=== PATIENT | male | born 1955 | race African-American/Black ===

== ENCOUNTER → 2016-06-05 | Day surgery (SDC) | payer BC ==
[~2016-06-05] MED LIST: ASPIRIN EC81 M1 PO; ASPIRIN PO; ASPIRIN81 M1 PO; ATACAND HCT 32-1 TAB PO; ATACAND PO; CELEBREX PO; CELEBREX100 MG PO; CHLORTHALIDONE25 M1 PO; CIALIS10 MG PO; CLONIDINE HCL0.1 MG PO; DULCOLAX10 MG/SUPP RC; FLEXERIL PO; FLEXERIL10 M1 PO; HYDROCODONE PO; KROGER PHARMACY; LISINOPRIL PO; LOPRESSOR PO; METOPROLOL SUCC25 MG PO; NAPROSYN500 MG PO; NAPROXEN500 M1 PO; NORVASC PO; NORVASC10 MG PO; PERCOCET5/325 PO; RESTASIS32 EA OU; TYLOX 5/500 CAP1 CAP PO; VALIUM10 MG PO; WALGREEN PHARMACY; ZYRTEC PO
--- NOTE | ~2016-06-05 | OR ---
Unit #: [id number] #: [id number] Patient: MOISES LEIGH [id number] [address] [place], [place] [address] [id number] O MR#: [id number] NAME: MOISES LEIGH. ROOM: Date of Procedure: 06/05/2016 Admission Date: 06/05/2016 Surgeon: Keagan Fritz M.D. : 1955 Attending Physician: Keagan Fritz M.D. Primary Care Physician: Elvis Rios M.D. OPERATIVE REPORT PREOPERATIVE DIAGNOSES Back pain, radiculopathy, herniated nucleus pulposus, spinal stenosis, degenerative disk disease. POSTOPERATIVE DIAGNOSES Back pain, radiculopathy, herniated nucleus pulposus, spinal stenosis, degenerative disk disease. PROCEDURES PERFORMED Lumbar epidural steroid injection with intravenous sedation and fluoroscopic guidance for needle localization. INDICATIONS FOR PROCEDURE This is a 60-year-old male presented with a 5-month history of worsening pain, right greater than left lower extremity pain, which is greater than his low back pain. Workup demonstrated multilevel abnormalities, most significant right-sided disk herniation at L1-2, left-sided L2-3 with marked left greater than right neuroforaminal stenosis, moderate stenosis at L3-4 and L4-5. The patient failed to settle with conservative treatment. The patient was sent for a trial of epidural steroids. Two were done over the last several weeks. They have given additive significant improvement in all components of his pain. He still does have leg numbness and that has somewhat improved also. Based on his good response, we are going to proceed with a final injection at this point. The patient will follow up at the [facility] as needed. If he does get good prolonged improvement with this, he is certainly a good candidate for repeat injections down the line if the pain does indeed flare, which would not be surprising based on the pathology on his back. DESCRIPTION OF PROCEDURE The patient was placed in a seated position. Standard monitors were applied. 2 mg of Versed were given for sedation and anxiolysis, which were adequate. Vital signs remained stable. Sterile prep and drape then of the lumbar area was performed. Skin at the L4 level was localized with 1% lidocaine. An 18-gauge [employer] needle was then advanced via loss of resistance technique and fluoroscopic guidance in toward the epidural space. The patient did not complain of any pain or paresthesia during needle advancement. After confirming proper positioning with fluoroscopy and radiographic contrast, 80 mg of Depo-Medrol and 4 mL of 0.125% bupivacaine were deposited. The patient tolerated the procedure otherwise well and was discharged to the recovery room in stable condition. Unit #: [id number] #: [id number] Patient: MOISES LEIGH Dictated by... Matthew Stubbs/sweta TD: 06/06/2016 01:02 JOB #: [id number] CC: Ifeanyi Westfall M.D. OPERATIVE REPORT X Keagan Fritz MD X PROCEDURE OPERATIVE NOTE
== END | disposition home or self-care (01) ==
LOC: CCSC 07:16
DX: M51.16 Intervertebral disc disorders with radiculopathy, lumbar region (principal); M48.06 Spinal stenosis, lumbar region
CPT/HCPCS: J1040; J2250